=== PATIENT | male | born 1950 | race Caucasian/White ===

== ENCOUNTER → 2019-08-08 | Outpatient (CLI) | payer BC ==
--- NOTE | 2019-08-08 15:42 | RAD ---
EXAM: Right inguinal sonogram. HISTORY: Inguinal pain. TECHNIQUE: Sonographic imaging of the right inguinal region at the site of palpable concern was performed. COMPARISON: None. FINDINGS: There are multiple inguinal lymph nodes within the site of palpable concern, the largest of which measures 15 mm in long axis. This maintains a benign appearing fatty hilum. There is no hernia. No mass or fluid collection is seen. IMPRESSION: Benign-appearing right inguinal lymph nodes at the site of palpable concern. Electronically signed by: Yahaira Desai MD (08/08/2019 3:40 PM) [place] [id number]
== END | disposition home or self-care (01) ==
LOC: PMG 10:58
PROVIDERS: ATTEND Family Medicine
DX: R10.31 Right lower quadrant pain (principal)
CPT/HCPCS: 76881